=== PATIENT | male | born 1965 | race Caucasian/White ===

== ENCOUNTER 2017-01-20 12:14 | Observation (INO) ==
[2017-01-20] MEDS ORDERED: 0.9 % SODIUM CHLORIDE 1,000 ML IV ONE ×3 (12:44→15:32)
--- NOTE | 2017-01-20 13:03 | Emergency Department Note ---
General Adult HPI - General Chief complaint: Blood Sugar Problem Stated complaint: "I feel like im in DKA" Time Seen by Provider: 01/20/17 12:36 Source: patient Mode of arrival: ambulatory Limitations: no limitations - History of Present Illness HPI Narrative: 51-year-old male who states he goes in the frequent DKA is suspicious of DKA despite the fact that his blood sugars are running just in the 200s. He had one episode of vomiting this morning. States she has been feeling nauseated and increased weakness over the past 2 days some mild abdominal pain. States he has flulike symptoms. In previous visits and hospitalizations his blood sugars have been running in the 200s but is in DKA with bicarb levels of 14 on his previous visit. And having some slight dysuria he is afebrile this been no diarrhea constipation but no hematemesis no melena. Respiratory rate 26 patient tachycardic 120. - Related Data Home Medications Medication Instructions Recorded Confirmed Aspirin [Raymond Chewable Aspirin] 81 mg PO DAILY 11/15/14 09/27/16 Insulin 70/30, Human [Novolin 10 unit SQ TID 11/15/14 09/27/16 70/30] Rosuvastatin Calcium [Crestor] 40 mg PO HS 11/15/14 09/27/16 predniSONE [Prednisone] 0 mg PO BID 09/27/16 09/27/16 Allergies Allergy/AdvReac Type Severity Reaction Status Date / Time No Known Drug Allergies Allergy Verified 09/27/16 10:41 Review of Systems All systems ED: reviewed and negative except as stated. Constitutional: Denies: fever, chills Cardiovascular: Denies: chest pain Respiratory: Denies: cough Gastrointestinal: Reports: nausea, vomiting. Denies: abdominal pain, diarrhea, constipation, hematochezia, melena Genitourinary: Denies: dysuria Musculoskeletal: Denies: back pain Integumentary: Denies: rash Neurological: Denies: headache Past Medical History - Past Medical History Medical history: Reports: diabetes, hyperlipidemia, hypertension, other ( diabetes. ) Psychiatric history: Reports: anxiety, bipolar, depression, prior suicide attempt Surgical history ED: Reports: tonsillectomy - Social History smoking status: Current every day smoker Alcohol use: Reports: Occasionally (HAS BINGED IN THE PAST DENIES NOW.), Recent (DRANK 4 DRINKS 4 DAYS AGO.) Drug use: Reports: none Physical Exam Limitations: no limitations General appearance: alert Head: atraumatic, normocephalic Eye: Present: normal appearance, PERRL ENT: normal exam, normal oropharynx, mucous membranes moist Neck: Present: normal inspection, full ROM, trachea midline Chest: Present: normal inspection, symmetric chest wall rise. Absent: tenderness Respiratory: Present: normal lung sounds bilaterally, respiratory distress. Absent: wheezes, stridor Cardiovascular: Present: regular rate, tachycardia Abdominal: Present: soft, distention. Absent: tenderness, guarding Extremities: Present: normal inspection, full ROM Back: Present: normal inspection, full ROM. Absent: tenderness, CVA tenderness (R), CVA tenderness (L) Neurological: Present: alert, oriented X3, CN II-XII intact Psychiatric: Present: normal affect, normal mood. Absent: depressed, agitated Skin: Absent: warm Course Vital Signs Temperature 96.9 F L 01/20/17 12:16 Pulse Rate 130 H 01/20/17 12:16 Respiratory Rate 26 H 01/20/17 12:16 Blood Pressure 121/81 01/20/17 12:16 Pulse Oximetry (%) 98 01/20/17 12:16 Temperature 96.9 F L 01/20/17 12:16 Pulse Rate 104 H 01/20/17 13:54 Respiratory Rate 25 H 01/20/17 13:54 Blood Pressure 125/72 01/20/17 13:54 Pulse Oximetry (%) 99 01/20/17 13:54 Medical Decision Making - [facility] Narrative Medical decision making narrative: Blood gases were drawn pH of 7.33 and PCO2 was 18 his bicarb level was 9. White count was elevated at 16,000, ketones were 8.9, O2 content and can panel was 14 patient given IV fluids and on an insulin drip. Joe contacted patient be admitted by hospitalist. - Lab Data Result diagrams: 01/20/17 12:48 Lab Results 01/20/17 01/20/17 01/20/17 Range/Units 12:48 12:48 12:48 WBC 16.0 H (4.5-11.0) K/mcL RBC 4.19 L (4.50-5.90) M/mcL Hgb 14.7 (13.5-16.5) g/dL Hct 43.5 (41.0-55.0) % POC Hct (41.0-55.0) % MCV 103.8 H (80.0-100.0) fL MCH 35.0 H (26.0-34.0) pg MCHC 33.7 (31.0-36.0) g/dL RDW 13.0 (11.5-14.5) % Plt Count 230 (140-440) K/mcL MPV 8.6 (7.4-10.4) fL Gran % 77.5 (38.0-78.0) % Lymph % (Auto) 12.0 L (15.5-49.0) % [place] % (Auto) 9.8 (1.0-12.0) % Eos % (Auto) 0.4 (0.0-7.0) % Baso % (Auto) 0.3 (0.0-2.0) % Gran # 12.4 H (1.8-8.0) K/mcL Lymph # (Auto) 1.9 (1.5-4.8) K/mcL [place] # (Auto) 1.6 H (0.1-0.9) K/mcL Eos # (Auto) 0.1 (0.0-0.7) K/mcL Baso # (Auto) 0 (0.0-0.3) K/mcL POC Sodium (133-145) mmol/L POC Potassium (3.3-5.1) mmol/L POC Chloride (96-108) mmol/L POC Total CO2 (22-30) mmol/L POC BUN (6-20) mg/dl POC Creatinine (0.7-1.2) mg/dl POC Glucose (70-105) mg/dL POC WB Ioniz Calcium (1.16-1.32) mmol/L Beta-Hydroxybutyrate 8.93 H (< 0.27) mmol/L Ethyl Alcohol < 0.010 (<0.010) gm/dl 01/20/17 Range/Units 12:49 WBC (4.5-11.0) K/mcL RBC (4.50-5.90) M/mcL Hgb (13.5-16.5) g/dL Hct (41.0-55.0) % POC Hct 46.0 (41.0-55.0) % MCV (80.0-100.0) fL MCH (26.0-34.0) pg MCHC (31.0-36.0) g/dL RDW (11.5-14.5) % Plt Count (140-440) K/mcL MPV (7.4-10.4) fL Gran % (38.0-78.0) % Lymph % (Auto) (15.5-49.0) % [place] % (Auto) (1.0-12.0) % Eos % (Auto) (0.0-7.0) % Baso % (Auto) (0.0-2.0) % Gran # (1.8-8.0) K/mcL Lymph # (Auto) (1.5-4.8) K/mcL [place] # (Auto) (0.1-0.9) K/mcL Eos # (Auto) (0.0-0.7) K/mcL Baso # (Auto) (0.0-0.3) K/mcL POC Sodium 129 L (133-145) mmol/L POC Potassium 5.0 (3.3-5.1) mmol/L POC Chloride 100 (96-108) mmol/L POC Total CO2 14 L (22-30) mmol/L POC BUN 23 H (6-20) mg/dl POC Creatinine 0.6 L (0.7-1.2) mg/dl POC Glucose 228 H (70-105) mg/dL POC WB Ioniz Calcium 1.03 L (1.16-1.32) mmol/L Beta-Hydroxybutyrate (< 0.27) mmol/L Ethyl Alcohol (<0.010) gm/dl Disposition Pt seen by ACCESS LEAD/PA only: No Clinical Impression: DKA (diabetic ketoacidoses) Qualifiers: Diabetes mellitus type: type 1 Disposition: Xfer As Inpt ([facility]) Referrals: Dorina Mancera DO [Primary Care Provider] -
[2017-01-20] MEDS ORDERED: PHENobarb/HYOSCY/ATROPINE/SCOP 1 DOSE BOTTLE PO ONE (13:22)
[2017-01-20] MEDS ORDERED: INSULIN REGULAR, HUMAN 50 UNIT in 0.9 % SODIUM CHLORIDE 99.5 ML IV SCH (13:30)
[2017-01-20 13:33] LABS: Basophils # (Auto) 0 K/mcL (0.0-0.3); Basophils % (Auto) 0.3 % (0.0-2.0); Eosinophils # (Auto) 0.1 K/mcL (0.0-0.7); Eosinophils % (Auto) 0.4 % (0.0-7.0); Lymphocytes # (Auto) 1.9 K/mcL (1.5-4.8); Mean Cell Volume 103.8 fL (80.0-100.0); Mean Corpuscular HGB Conc 33.7 g/dL (31.0-36.0); Monocytes # (Auto) 1.6 K/mcL (0.1-0.9); Monocytes % (Auto) 9.8 % (1.0-12.0); Platelet Count 230 K/mcL (140-440); RBC 4.19 M/mcL (4.50-5.90)
--- NOTE | 2017-01-20 13:38 | XRay Report ---
INDICATION: Chest pain TECHNIQUE: AP chest x-ray,portable semiupright COMPARISON: None FINDINGS:Lungs are negative. No parenchymal infiltrate or mass. Heart size and vascularity are normal. No pulmonary edema. No pulmonary congestion. Radha and mediastinum are negative. No lateral fluid. IMPRESSION: 1. Negative AP chest x-ray 2. No interval change since 10/31/2015 Interpreted and Authenticated by: Paul Fernández 01/20/17
[2017-01-20] MEDS ORDERED: INSULIN REGULAR, HUMAN 50 UNIT in 0.9 % SODIUM CHLORIDE 99.5 ML IV ONE (13:43)
[2017-01-20] MEDS ORDERED: ONDANSETRON 4 MG/2 ML VIAL IV ONE (13:53)
[2017-01-20 14:12] LABS: Granulocytes % (Auto) 77.5 % (38.0-78.0)
[2017-01-20 14:41] LABS: Amphetamine Screen,Urine NONE DETECTED (NONDETECTED); Benzodiazepines Screen,Urine NONE DETECTED (NONDETECTED); Cocaine Screen,Urine NONE DETECTED (NONDETECTED); Opiate Screen,Urine NONE DETECTED (NONDETECTED)
[2017-01-20 14:45] LABS: Appearance,Urine CLEAR; Bacteria,Urine 0 /hpf (0); Bilirubin,Urine NEG (NEG); Color,Urine YELLOW; Glucose,Urine (UA) >=500 mg/dL (NEG); Leukocyte Esterase,Urine NEG /uL (NEG); Nitrate,Urine NEG (NEG); Protein,Urine 30 mg/dL (NEG); Specific Gravity,Urine 1.018 (1.000-1.035); Urine Blood 0.03 mg/dL (<0.03); Urine Hyaline Cast 16 /lpf (0-2); Urine RBC < 1 /hpf (0-1); Urine Squamous Epithelial Cell 0 /hpf (0-4); Urine WBC 5 /hpf (0-4); Urobilinogen,Urine NEG (NEG)
--- NOTE | 2017-01-20 15:18 | Internal Med History&Physical ---
Medical - H&P: HPI Patient information: Note initiated : 01/20/17 at 3:12 pm Service Date, if different from initiated Date: [] Patient: Luís Guadarrama a 51 y/o M admitted on for "I feel like im in DKA". Chief Complaint: Abdominal cramps, nausea, emesis, concern for DKA History of present illness: Mr. Guadarrama is a 51 year old M with a history of type 1 diabetes mellitus, hyperlipidemia, treated hypertension, bipolar disorder who presents with symptoms concerning for DKA. History is obtained in reviewing the chart, summarized as below, interviewing the patient. Patient started feeling ill about 2 days ago, he had flulike symptoms, which he often gets when he is developing DKA. He felt weak. Subsequently developed abdominal cramps with nausea, as well as gastric reflux symptoms. This morning he had emesis, which he realized was secondary to impending diabetic ketoacidosis and presented to the emergency department. In addition to his typical DKA symptoms, he also was feeling feverish with some chills at the onset of his illness. This does not usually accompany DKA. He had a mild headache and had been feeling lightheaded. He had no nasal congestion. No sore throat he had no myalgias. He has had increased thirst, as been drinking frequently, lots of water. He is also up several times in the night to urinate , while at baseline he is only up approximately twice per night. He's also had some dysuria when starting urinary stream for the last couple of days. Patient's glucoses are chronically in the 2-300 range. He does not think it's been that much different the last few days. His glucose was 178 this morning. He's had close to no oral intake for the last 3 days. Patient denies any chest tightness/squeezing/dyspnea. He's had no cough or sputum production. He has no history of coronary artery disease. No history of renal disease. Mild headache as noted, no focal neurologic symptoms. He had no hematemesis associated with his emesis. No blood in his stool. Dysuria as noted above. In the emergency department, he was found to have an anion gap acidosis with positive acetone consistent with diabetic ketoacidosis. He is being hospitalized for further treatment. Review of systems: Except as noted in history present illness, the remainder of an 11 point review of systems is negative. Medical - H&P: PMH Medical history: Type 1 diabetes mellitus, diagnosed in 2005 Hyperlipidemia Bipolar disorder with anxiety and depression Nicotine abuse Hypertension Pityriasis rosea, status post steroid treatment Surgical history: no prior surgeries Pertinent family history: Patient's grandmother had type 2 diabetes mellitus. Mother with breast cancer, father with coronary artery disease. Social history: The patient smokes one pack per day of cigarettes. He drinks occasional alcohol. Medical - H&P: Meds Home Medications Medication Instructions Recorded Confirmed Type Aspirin [Raymond Chewable Aspirin] 81 mg PO DAILY 11/15/14 01/20/17 History Insulin 70/30, Human [Novolin 10 unit SQ TID 11/15/14 01/20/17 History 70/30] Rosuvastatin Calcium [Crestor] 40 mg PO HS 11/15/14 01/20/17 History Lisinopril [Zestril] 10 mg PO DAILY 01/20/17 01/20/17 History Allergies Allergy/AdvReac Type Severity Reaction Status Date / Time No Known Drug Allergies Allergy Verified 09/27/16 10:41 Medical - H&P: Exam - Constitutional Vitals: Temp Pulse Resp BP Pulse Ox 96.9 F L 114 H 34 H 144/92 99 01/20/17 12:16 01/20/17 14:59 01/20/17 14:59 01/20/17 14:59 01/20/17 14:59 General appearance: average body habitus, cooperative, no acute distress - Head Head exam: Present: atraumatic, normal inspection, normocephalic - Eye Eye exam: Present: EOMI, normal appearance, PERRL. Absent: conjunctival injection, scleral icterus - ENT ENT exam: Present: mucous membranes moist, normal oropharynx - Neck Neck exam: Present: full ROM. Absent: lymphadenopathy, meningismus, thyromegaly - Respiratory Respiratory exam: Present: CTAB. Absent: accessory muscle use, rales, wheezes - Cardiovascular Cardiovascular exam: Present: tachycardia (regular). Absent: diastolic murmur, JVD, +S3, +S4, systolic murmur - Expanded Cardiovascular Exam Peripheral pulses: 2+: carotid (L), carotid (R), dorsalis pedis (L), dorsalis pedis (R) - GI/Abdominal GI/Abdominal exam: Present: normal bowel sounds, soft. Absent: distended, guarding, organomegaly, rebound, tenderness - Extremities Exam Extremities exam: Present: full ROM. Absent: calf tenderness, joint swelling, pedal edema - Back Exam Back exam: Present: normal inspection. Absent: tenderness - Neurological Exam Neurological exam: Present: alert, CN II-XII intact, oriented X3. Absent: motor sensory deficit - Psychiatric Psychiatric exam: Present: normal affect, normal mood - Skin Skin exam: Present: intact, normal color, warm. Absent: pallor Medical - H&P: Reslt - Labs CBC & Chem 7: 01/20/17 12:48 Labs: Short CBC 01/20/17 Range/Units 12:48 WBC 16.0 H (4.5-11.0) K/mcL Hgb 14.7 (13.5-16.5) g/dL Hct 43.5 (41.0-55.0) % Plt Count 230 (140-440) K/mcL Urine 01/20/17 Range/Units 13:56 Urine Color Yellow Urine Appearance Clear Urine pH 5.0 (5.0-9.0) Ur Specific [place] 1.018 (1.000-1.035) Urine Protein 30 A (NEG) mg/dL Urine Glucose (UA) >=500 A (NEG) mg/dL Laboratory Results - last 24 hr 01/20/17 01/20/17 01/20/17 12:48 12:48 12:48 WBC 16.0 H RBC 4.19 L Hgb 14.7 Hct 43.5 POC Hct MCV 103.8 H MCH 35.0 H MCHC 33.7 RDW 13.0 Plt Count 230 MPV 8.6 Gran % 77.5 Lymph % (Auto) 12.[address] [place] % (Auto) 9.8 Eos % (Auto) 0.4 Baso % (Auto) 0.3 Gran # 12.4 H Lymph # (Auto) 1.9 [place] # (Auto) 1.6 H Eos # (Auto) 0.1 Baso # (Auto) 0 POC Sodium POC Potassium POC Chloride POC Total CO2 POC BUN POC Creatinine POC Glucose POC WB Ioniz Calcium Beta-Hydroxybutyrate 8.93 H Urine Color Urine Appearance Urine pH Ur Specific [place] Urine Protein Urine Glucose (UA) Urine Ketones Urine Occult Blood Urine Nitrate Urine Bilirubin Urine Urobilinogen Ur Leukocyte Esterase Urine RBC Urine WBC Ur Squamous Epith Cells Urine Bacteria Hyaline Casts Ur Culture Indicated? Urine Opiates Screen Urine Methadone Screen Ur Barbiturates Screen Ur Phencyclidine Scrn Ur Amphetamines Screen U Benzodiazepines Scrn Urine Cocaine Screen U Marijuana (THC) Screen Ethyl Alcohol < 0.010 01/20/17 01/20/17 01/20/17 12:49 13:56 13:56 WBC RBC Hgb Hct POC Hct 46.0 MCV MCH MCHC RDW Plt Count MPV Gran % Lymph % (Auto) [place] % (Auto) Eos % (Auto) Baso % (Auto) Gran # Lymph # (Auto) [place] # (Auto) Eos # (Auto) Baso # (Auto) POC Sodium 129 L POC Potassium 5.0 POC Chloride 100 POC Total CO2 14 L POC BUN 23 H POC Creatinine 0.6 L POC Glucose 228 H POC WB Ioniz Calcium 1.03 L Beta-Hydroxybutyrate Urine Color Yellow Urine Appearance Clear Urine pH 5.0 Ur Specific [place] 1.018 Urine Protein 30 A Urine Glucose (UA) >=500 A Urine Ketones 80 A Urine Occult Blood 0.03 A Urine Nitrate Neg Urine Bilirubin Neg Urine Urobilinogen Neg Ur Leukocyte Esterase Neg Urine RBC < 1 Urine WBC 5 H Ur Squamous Epith Cells 0 Urine Bacteria 0 Hyaline Casts 16 H Ur Culture Indicated? Yes Urine Opiates Screen None detected Urine Methadone Screen None detected Ur Barbiturates Screen None detected Ur Phencyclidine Scrn None detected Ur Amphetamines Screen None detected U Benzodiazepines Scrn None detected Urine Cocaine Screen None detected U Marijuana (THC) Screen None detected Ethyl Alcohol - ABG Interpretation ABG results: 7.33/, lactate 1.0 - EKG Data -: EKG Reviewed by Myself EKG shows normal: sinus rhythm, ST-T waves Rate: tachycardia (116 bpm) - Impressions CXR reviewed, clear lung duran. Medical - H&P: A/P (1) Diabetic ketoacidosis Current visit: Yes Status: Acute (2) Type 1 diabetes mellitus Current visit: Yes Status: Chronic (3) Hypertension Current visit: Yes Status: Chronic (4) Hyperlipidemia Current visit: Yes Status: Chronic - Narrative A/P Narrative: 51-year-old male with late onset type 1 diabetes mellitus and history of diabetic ketoacidosis presents with weakness, abdominal symptoms, hyperglycemia , found to have recurrent DKA. DKA. Unclear etiology, he generally has not well controlled glucoses. States he has been taking his insulin. This did start with some subjective fevers and chills, though none now. May have been intercurrent viral illness, or glucoses became elevated enough without adequate insulin to slip into DKA. Do not suspect acute coronary syndrome. Chest x-ray is clear. He does have some dysuria but no evidence of urinary tract infection. His DKA is mild. Plan: Hospitalized in observation status IV insulin, IV fluids with dextrose as his serum glucose is not that elevated Serial electrolytes Monitor for closing of anion gap Type 1 diabetes mellitus. Diagnosed later in life, but clearly has had prior episodes of DKA and this is treated as type 1 diabetes. Plan: Hold subcutaneous insulin for now, resume regimen once anion gap closed. Controlled carb diet. Hypertension. On lisinopril at home. Plan: Continue lisinopril. Hyperlipidemia. On Crestor at home. Plan: Continue Crestor. Prophylaxis: Low molecular weight heparin. CODE STATUS: Full code
[2017-01-20] MEDS ORDERED: DEXTROSE 5%-1/2NS 1,000 ML IV ONE (15:31)
[2017-01-20] MEDS ORDERED: INSULIN REGULAR, HUMAN 50 UNIT in 0.9 % SODIUM CHLORIDE 100 ML IV SCH (15:51)
[2017-01-20] MEDS ORDERED: ONDANSETRON 4 MG/2 ML VIAL IV PRN (15:51)
[2017-01-20] MEDS ORDERED: ACETAMINOPHEN 325 MG TABLET PO PRN (15:51)
[2017-01-20] MEDS ORDERED: NICOTINE 21 MG PATCH TOPICAL ONE (17:31)
[2017-01-20] MEDS ORDERED: NICOTINE 21 MG PATCH ONE (17:48)
[2017-01-20] MEDS: DEXTROSE 5%-1/2NS 1,000 ML IV SCH ×2 (17:57→21:59)
[2017-01-20 18:58] LABS: Blood Urea Nitrogen 12 mg/dl (6-20)
[2017-01-20] MEDS ORDERED: INSULIN REGULAR, HUMAN 1 UNIT/0.01 ML UNIT IV PRN (19:07)
[2017-01-20] MEDS ORDERED: INSULIN REGULAR, HUMAN 1 UNIT/0.01 ML UNIT ONE (19:28)
[2017-01-20] MEDS ORDERED: DEXTROSE 50% 50 ML SYRINGE IV PRN (20:43)
[2017-01-20] MEDS ORDERED: ATORVASTATIN 20 MG TABLET PO SCH (21:00)
[2017-01-20 21:39] LABS: Magnesium 1.9 mg/dL (1.6-2.5)
[2017-01-20 21:42] LABS: Blood Urea Nitrogen 14 mg/dl (6-20)
[2017-01-21 05:23] LABS: ALT/SGPT 10 U/l (0-40); Albumin 2.9 gm/dL (3.2-5.2); Alkaline Phosphatase 86 U/L (39-117); Bilirubin,Direct < 0.2 mg/dL (0.0-0.3); Blood Urea Nitrogen 12 mg/dl (6-20); Gamma Glutamyl Transpeptidase 26 U/L (8-61); Magnesium 2.1 mg/dL (1.6-2.5); Uric Acid 3.1 mg/dL (2.5-8.0)
[2017-01-21] MEDS: DEXTROSE 5%-1/2NS 1,000 ML IV SCH (06:04)
[2017-01-21 06:07] LABS: Basophils # (Auto) 0 K/mcL (0.0-0.3); Basophils % (Auto) 0.2 % (0.0-2.0); Eosinophils # (Auto) 0.1 K/mcL (0.0-0.7); Eosinophils % (Auto) 0.9 % (0.0-7.0); Granulocytes % (Auto) 74.2 % (38.0-78.0); Lymphocytes % (Auto) 16.9 % (15.5-49.0); Mean Cell Volume 104.2 fL (80.0-100.0); Mean Corpuscular HGB Conc 34.5 g/dL (31.0-36.0); Mean Corpuscular Hemoglobin 35.9 pg (26.0-34.0); Monocytes # (Auto) 0.9 K/mcL (0.1-0.9); Monocytes % (Auto) 7.8 % (1.0-12.0); Platelet Count 219 K/mcL (140-440); RBC 3.53 M/mcL (4.50-5.90); Red Cell Distribution Width 12.9 % (11.5-14.5)
[2017-01-21] MEDS ORDERED: INSULIN REGULAR, HUMAN 1 UNIT/0.01 ML UNIT ONE (06:51)
[2017-01-21] MEDS ORDERED: DEXTROSE 31 GM ORAL.SUSP PO PRN (08:17)
[2017-01-21] MEDS ORDERED: DEXTROSE 50% 50 ML VIAL IV PRN (08:17)
[2017-01-21] MEDS ORDERED: LISINOPRIL 10 MG TABLET PO SCH (09:00)
[2017-01-21] MEDS ORDERED: ENOXAPARIN 40 MG/0.4 ML SYRINGE SQ SCH (09:00)
[2017-01-21] MEDS ORDERED: ASPIRIN 81 MG TAB.CHEW PO SCH (09:00)
[2017-01-21] MEDS ORDERED: POTASSIUM PHOSPHATE 40 MEQ in DEXTROSE 5% IN WATER 500 ML IV ONE (09:00)
[2017-01-21] MEDS: INSULIN, 75/25 NPL/LISPRO 1 UNIT/0.01 ML UNIT SQ SCH ×2 (09:11→12:36)
[2017-01-21] MEDS ORDERED: NICOTINE 21 MG PATCH TOPICAL SCH (10:00)
[2017-01-21] MEDS ORDERED: INSULIN LISPRO 1 UNIT/0.01 ML UNIT SQ SCH (11:30)
[2017-01-21] MEDS ORDERED: INSULIN, 75/25 NPL/LISPRO 1 UNIT/0.01 ML UNIT SQ SCH (11:45)
[2017-01-21] MEDS ORDERED: AMOXICILLIN 250 MG CAPSULE PO STA (14:21)
--- NOTE | 2017-01-21 18:41 | Discharge Summary ---
Medical - DS: Prov Patient information: Note initiated : 01/21/17 at 6:36 pm Service Date, if different from initiated Date: [] Patient: Luís Guadarrama 51 y/o M admitted on 01/20/17 for "I feel like im in DKA". Date of admission: 01/20/17 15:35 Discharge date: 01/21/17 Primary care physician: Dorina Mancera Admitting clinician: Regina Lew Consults: 01/20/17 14:59 Consult to Physician [CONS] Stat Comment: Consulting Provider: Regina Lew Reason For Exam: Physician to Consult Discharging clinician: Regina Lew Medical - DS: Meds - Discharge Medications Prescriptions: Amoxicillin 875 mg PO Q12H #10 tab Active and Home Medications: Home Medications Aspirin [Raymond Chewable Aspirin] 81 mg PO DAILY 11/15/14 [History Confirmed Last Taken 01/13/17 08:00] Insulin 70/30, Human [Novolin 70/30] 10 unit SQ TID 11/15/14 [History Confirmed 01/20/17 Last Taken 01/19/17 16:00] Rosuvastatin Calcium [Crestor] 40 mg PO HS 11/15/14 [History Confirmed 01/20/17 Last Taken 01/19/17 17:00] Lisinopril [Zestril] 10 mg PO DAILY 01/20/17 [History Confirmed 01/20/17 Last Taken 01/20/17 08:00] Amoxicillin 875 mg PO Q12H #10 tab 01/21/17 [Rx Last Taken Unknown] Medical - DS: Hosp Hospital course: Mr. Guadarrama is a 51-year-old male with history of type 1 diabetes mellitus and history of DKA. He presented with a few days of malaise, mildly elevated glucoses, polyuria and polydipsia. On the day of hospitalization he also had nausea and vomiting. He is found to be in mild DKA with elevated anion gap, positive serum ketones. He is treated with IV insulin, fluids with dextrose. Over the next several hours and overnight his anion gap closed. He is weaned off of his insulin drip back onto his usual 70/30 insulin regimen. He tolerated that well. Patient is also complaining of some dysuria at admission. Initial urinalysis was not concerning, however culture returned [id number] CFU per mL of enterococcus. Given his diabetes, glucosuria and symptoms, I have elected to treat him for urinary tract infection. He was given 1 dose of amoxicillin prior to discharge and will follow-up with 5 day course as an outpatient. Discharge diagnosis: DKA, resolved - Time Spent with Patient Total time spent providing and/or coordinating discharge services: Medical - DS: Exam - Constitutional Vitals: Vital Signs Temp Pulse Resp BP BP Pulse Ox 01/21/17 14:56 18 01/21/17 12:05 98.6 F 18 124/84 01/21/17 09:37 124/84 01/21/17 08:14 98.5 F 12 95/65 97 01/21/17 07:23 18 01/21/17 04:02 98.5 F 16 106/66 95 01/21/17 00:05 98.2 F 16 108/69 97 01/20/17 19:47 99.0 F H 94 H 20 102/65 99 Intake and Output 01/21/17 01/21/17 01/21/17 05:59 13:59 21:59 Intake Total 1300 / 1300 1304.5909 / 1304.5909 Output Total 1450 / 1450 2350 / 2350 Balance -150 / -150 -1045.4091 / -1045.4091 Intake: IV 1000 / 5040 975.8868 / 584.5909 Dextrose 5%-1/2Ns IV Solution 1 1000 / 1000 ,000 ml @ 125 mls/hr IV .Q8H MAGDALENO Rx#:[id number] HumuLIN R 50 UNIT In Sodium 75.5 / 75.5 Chloride 0.9% 100 ml @ 0.1 UNIT /KG/HR 14.58 mls/hr IV DUR MAGDALENO Rx#:[id number] Potassium Phosphate 40 Meq In 509.0909 / 509.0909 Dextrose 5% in Water 500 ml @ 127.273 mls/hr IV ONCE ONE Rx#: [id number] Oral 300 / 300 720 / 720 Output: Urine Catheter Amount 850 / 850 Void Amount 1450 / 1450 1500 / 1500 Other: Meal Lunch Percent of Meal Consumed 100% Additional comments: Gen: in NAD Chest: Clear, unlabored CV: RRR, no edema Abd: Soft, NT Neuro: Alert, Ox3, normal mood and affect Medical - DS: Data Labs on day of discharge: Labs from last 24 hours 01/21/17 01/21/17 01/20/17 03:40 03:30 21:00 WBC 11.8 H RBC 3.53 L Hgb 12.7 L Hct 36.7 L MCV 104.2 H MCH 35.9 H MCHC 34.5 RDW 12.9 Plt Count 219 MPV 8.3 Gran % 74.2 Lymph % (Auto) 16.9 [place] % (Auto) 7.8 Eos % (Auto) 0.9 Baso % (Auto) 0.2 Gran # 8.8 H Lymph # (Auto) 2.0 [place] # (Auto) 0.9 Eos # (Auto) 0.1 Baso # (Auto) 0 Sodium 135 133 Potassium 4.1 3.8 Chloride 102 99 Carbon Dioxide 18 L 22 Anion Gap 15.0 12.0 BUN 12 14 Creatinine 0.6 L 0.8 GFR Calculation 116 103 Glucose 179 H 177 H Uric Acid 3.1 Calcium 8.3 L 8.0 L Phosphorus 1.7 L Magnesium 2.1 Total Bilirubin 0.3 Direct Bilirubin < 0.2 GGT 26 AST 13 ALT 10 Alkaline Phosphatase 86 Lactate Dehydrogenase 176 Total Protein 5.9 Albumin 2.9 L Globulin 3.0 Albumin/Globulin Ratio 1.0 Triglycerides 54 01/20/17 01/20/17 17:15 17:15 WBC RBC Hgb Hct MCV MCH MCHC RDW Plt Count MPV Gran % Lymph % (Auto) [place] % (Auto) Eos % (Auto) Baso % (Auto) Gran # Lymph # (Auto) [place] # (Auto) Eos # (Auto) Baso # (Auto) Sodium 132 L Potassium 4.3 Chloride 97 Carbon Dioxide 16 L Anion Gap 19.0 H BUN 12 Creatinine 0.8 GFR Calculation 103 Glucose 198 H Uric Acid Calcium 8.0 L Phosphorus 1.5 L Magnesium 1.9 Total Bilirubin Direct Bilirubin GGT AST ALT Alkaline Phosphatase Lactate Dehydrogenase Total Protein Albumin Globulin Albumin/Globulin Ratio Triglycerides Preliminary micro results at discharge 01/20/17 13:56 Urine Culture - Preliminary Urine - Clean Void Mid-Stream Enterococcus species Medical - DS: A/P - Patient/Caregiver Discharge Instructions Activity: increase activity as tolerated Diet: Consistent Carbohydrate Prescriptions: Amoxicillin 875 mg PO Q12H #10 tab - Problem Maintenance (1) Diabetic ketoacidosis Status: Resolved Qualifiers: Diabetes mellitus type: type 1 Diabetes mellitus complication detail: without coma Qualified Code(s): E10.10 - Type 1 diabetes mellitus with ketoacidosis without coma (2) Type 1 diabetes mellitus Status: Chronic Qualifiers: Diabetes mellitus complication status: with ketoacidosis Diabetes mellitus complication detail: without coma Qualified Code(s): E10.10 - Type 1 diabetes mellitus with ketoacidosis without coma (3) Hypertension Status: Chronic Qualifiers: Hypertension type: essential hypertension Qualified Code(s): I10 - Essential (primary) hypertension (4) Hyperlipidemia Status: Chronic Qualifiers: Hyperlipidemia type: unspecified Qualified Code(s): E78.5 - Hyperlipidemia , unspecified (5) UTI (urinary tract infection) due to Enterococcus Status: Acute - Follow up Plan Follow up with: Dorina Mancera DO [Primary Care Provider] - Disposition: Home, Self-Care Prognosis: Good Rehab Potential: Good Overall status at discharge: patient is back to baseline Medical - DS: Qual - VTE Deep Vein Thrombosis/Pulmonary Embolism Present on Admission: No
== END 2017-01-21 14:40 | disposition home or self-care (01) ==
LOC: ICU 12:14 → ED 12:14 → ICU 15:54
PROVIDERS: ADMIT Internal Medicine; ATTEND Internal Medicine

== ENCOUNTER 2020-08-31 08:13 | Inpatient (IN) ==
[2020-08-31] MEDS ORDERED: 0.9 % SODIUM CHLORIDE 1,000 ML IV ONE ×4 (08:37→11:15)
[2020-08-31] MEDS ORDERED: KETOROLAC 30 MG/ML VIAL IV ONE (08:44)
[2020-08-31] MEDS ORDERED: PROCHLORPERAZINE 10 MG/2 ML VIAL IV ONE (08:44)
[2020-08-31] MEDS ORDERED: 0.9 % SODIUM CHLORIDE 2,000 ML IV ONE (08:44)
[2020-08-31] MEDS ORDERED: diphenhydrAMINE 50 MG/ML VIAL IV ONE (08:44)
--- NOTE | 2020-08-31 08:55 | Emergency Department Note ---
Weakness HPI General Chief complaint: Weakness Stated complaint: "im in DKA" Time Seen by Provider: 08/31/20 08:36 Source: patient, RN notes reviewed and old records reviewed Mode of arrival: ambulatory Limitations: no limitations History of Present Illness HPI Narrative: Narrative: 55-year-old male was working outside in the extreme heat day prior to arrival and night prior to arrival started having nausea vomiting inability to hold down fluids feeling weak and dehydrated. Patient has diabetes and he says his sugars have been running in the 200s which is normal for him but he is tachycardic and he feels his breath smells acetone and he is concerned he may have DKA. MD Complaint: generalized weakness Onset (ago): day(s) (1) Duration: constant Location: generalized Migration: none Severity: moderate Improves with: rest Worsens with: exertion Context: other (Was working outside in the extreme heat day prior to arrival) Associated symptoms: Reports loss of appetite, nausea/vomiting and other (Tachycardia); Denies chest pain, confusion, dark stools, diaphoresis, dysuria, easy bruising, fever/chills, headaches, myalgias, rash, shortness of breath and syncope Related Data Home Medications Medication Instructions Recorded Confirmed rosuvastatin [Crestor] 40 mg PO HS 11/15/14 08/31/20 folic acid 800 mcg PO QAM 08/31/20 08/31/20 insulin NPH-regular hum s-syn 10 ml SUBCUT 1200,1800 08/31/20 08/31/20 [Novolin 70/30 U-100 Insulin] insulin NPH-regular hum s-syn 15 - 20 ml SUBCUT QAM 08/31/20 08/31/20 [Novolin 70/30 U-100 Insulin] lisinopril 40 mg PO QDAY 08/31/20 08/31/20 methotrexate 10 mg PO TU 08/31/20 08/31/20 Allergies Allergy/AdvReac Type Severity Reaction Status Date / Time No Known Drug Allergies Allergy Verified 08/31/20 08:17 Review of Systems ROS ROS Narrative: Narrative: Constitutional: Reports weakness; Denies fever and chills Eyes: Denies vision change ENT ED: Denies throat pain Cardiovascular: Reports palpitations; Denies chest pain Respiratory: Denies shortness of breath Gastrointestinal: Reports nausea and vomiting; Denies abdominal pain Musculoskeletal: Denies back pain Integumentary: Denies rash Neurological: Denies headache Psychiatric: Denies depression Endocrine: Reports fatigue and heat or cold intolerance Hematological/Lymphatic: Denies easy bruising Allergic/Immunologic: Denies urticaria PFSH Narrative Patient History Narrative: Narrative: Medical/Surgical/Family History All Active Problems (Updated 08/31/20 @ 10:44 by Fabian Kelly MD) Type 1 diabetes mellitus (Chronic) Hypertension (Chronic) Hyperlipidemia (Chronic) UTI (urinary tract infection) due to Enterococcus (Acute) DKA (diabetic ketoacidoses) (Acute) Acute hyperkalemia (Acute) Medical History Diabetic ketoacidosis Social History Smoking Status: Current every day smoker Exam Narrative Narrative: Narrative: General Limitations: no limitations General appearance: Present alert and in no apparent distress Head Head: Present atraumatic, normocephalic and normal inspection Eye Eye: Present normal appearance, PERRL and EOMI; Absent scleral icterus and conjunctival injection ENT ENT: Present normal oropharynx and mucous membranes dry Neck Neck: Present normal inspection, full ROM and trachea midline; Absent tenderness, meningismus, lymphadenopathy and thyromegaly Chest Chest: Present normal inspection and symmetric chest wall rise; Absent tenderness Respiratory Respiratory: Present normal lung sounds bilaterally; Absent respiratory distres s, wheezes, stridor, accessory muscle use and prolonged expiratory phase Cardiovascular Cardiovascular: Present normal rhythm and tachycardia; Absent systolic murmur and diastolic murmur Adbominal Abdominal: Present soft and normal bowel sounds; Absent distention, tenderness, guarding, rebound, rigidity, organomegaly and mass Extremities Extremities: Present normal inspection and full ROM; Absent tenderness, normal capillary refill, pedal edema, pretibial edema and calf tenderness Back Back: Absent CVA tenderness (R), CVA tenderness (L) and spinous process tenderness Neurological Neurological: Present alert and oriented X3 Psychiatric Psychiatric: Present normal affect and normal mood Skin Skin: Present warm (WNL) and dry Course Vital Signs Vital signs: Vital Signs Temperature 97.3 F 08/31/20 08:13 Pulse Rate 125 H 08/31/20 08:13 Respiratory Rate 16 08/31/20 08:13 Blood Pressure 99/82 08/31/20 08:13 Pulse Oximetry (%) 98 08/31/20 08:13 Temperature 97.3 F 08/31/20 08:13 Pulse Rate 114 H 08/31/20 10:02 Respiratory Rate 16 08/31/20 08:13 Blood Pressure 151/75 08/31/20 10:02 Pulse Oximetry (%) 100 08/31/20 10:02 [facility] MDM Narrative Medical decision making narrative: Narrative: 55-year-old male who became dehydrated from working outside day prior to arrival developed nausea vomiting and diabetic ketoacidosis. Patient sugar is 308 but he has a potassium of 5.4 and a BUN to creatinine ratio of greater than 20/1. Anion gap is markedly elevated at 34. Patient received 5 units of IV insulin and placed on a 2 unit/h IV insulin. Patient will be admitted to the ICU for DKA hyperkalemia and dehydration. Differential Diagnosis Differential Diagnosis: Dehydration, hyperglycemia, hypoglycemia, DKA, hyperosmolar. Medical Records Medical records reviewed: Yes I reviewed the patient's medical records. Lab Data Lab results reviewed: Yes I reviewed the patient's lab results. Result diagrams: 08/31/20 08:53 08/31/20 08:52 Labs: Lab Results 08/31/20 08/31/20 Range/Units 08:52 08:53 WBC 9.6 (4.5-11.0) K/mcL RBC 4.04 L (4.50-5.90) M/mcL Hgb 14.7 (13.5-16.5) g/dL Hct 42.6 (41.0-55.0) % MCV 105.4 H (80.0-100.0) fL MCH 36.4 H (26.0-34.0) pg MCHC 34.5 (31.0-36.0) g/dL RDW 12.2 (11.5-14.5) % Plt Count 266 (140-440) K/mcL MPV 10.1 (7.4-10.4) fL Neut % (Auto) 83.7 H (38.0-78.0) % Lymph % (Auto) 11.7 L (15.0-49.0) % Sebastian % (Auto) 4.3 (1.0-12.0) % Eos % (Auto) 0.1 (0.0-7.0) % Baso % (Auto) 0.2 (0.0-2.0) % Lymph # (Auto) 1.12 L (1.50-4.80) K/mcL Sebastian # (Auto) 0.41 (0.10-0.90) K/mcL Eos # (Auto) 0.01 (0.00-0.70) K/mcL Baso # (Auto) 0.02 (0.00-0.20) K/mcL Absolute Neutrophils 8.03 H (1.80-8.00) K/mcL Sodium 133 (133-145) mmol/L Potassium 5.4 H (3.3-5.1) mmol/L Chloride 90 L (96-108) mmol/L Carbon Dioxide 9 L* (22-30) mmol/L Anion Gap 34.0 H (8.0-16.0) BUN 27 H (6-20) mg/dL Creatinine 1.1 (0.7-1.2) mg/dL GFR Calculation 74 Glucose 308 H (70-105) mg/dL Calcium 10.2 (8.6-10.4) mg/dL Total Bilirubin 0.6 (0.1-1.0) mg/dL AST 21 (<40) U/L ALT 19 (<40) U/L Alkaline Phosphatase 113 (39-117) U/L Total Protein 7.4 (5.9-8.4) gm/dL Albumin 4.5 (3.2-5.2) gm/dL Globulin 2.9 (2.2-3.7) gm/dL Albumin/Globulin Ratio 1.6 (1.0-2.3) ED POC Tests ED POC Tests: UA dip positive for ketones EKG Data EKG #1: EKG attestation: Yes I reviewed and interpreted this EKG. EKG shows normal: sinus rhythm Rate: tachycardia (103) Rhythm: NSR [place]/QRS: LAHB/LAFB P waves: LAE Heart block present: None ST segment elevation in: None ST segment depression in: None Q waves: v1 and v2 Hyperacute T waves: v3, v4, v5 and v6 QTc: normal QRS morphology: Present normal Interpretation: nonspecific ST-T wave changes Pulse Oximetry Data Pulse Ox %: 100 Interpretation: WNL CC TIME Critical Care Time Critical Care Time: Yes Total Critical Care Time: 45 Attestation: Approximately 45 minutes of critical care time was used in order to assess and manage the high probability of imminent or life threatening deterioration to [system DKA hyperkalemia risk for kidney failure and cardiac arrest secondary to hyperkalemia] which required my highest level of preparedness and interventions with frequent patient assessments. This time is excluding time spent on separately billable procedures. Discharge Plan Patient/Caregiver Discharge Instructions Pt seen by KEG WASHER/PA only: No Clinical Impression: Acute hyperkalemia DKA (diabetic ketoacidoses) Qualifiers: Diabetes mellitus type: type 1 Diabetes mellitus complication detail: without coma Qualified Code(s): E10.10 - Type 1 diabetes mellitus with ketoacidosis without coma Patient Disposition: Xfer As Inpt ([facility]) Follow up with: Naldo Valdez ARNP [Primary Care Provider] - Prescriptions: No Action rosuvastatin [Crestor] 40 MG tablet 40 mg PO HS RF: 0 lisinopril 40 mg Tablet 40 mg PO QDAY RF: 0 folic acid 800 mcg Tablet 800 mcg PO QAM RF: 0 Novolin 70/30 U-100 Insulin 100 unit/mL (70-30) Solution 15 - 20 ml SUBCUT QAM RF: 0 Novolin 70/30 U-100 Insulin 100 unit/mL (70-30) Solution 10 ml SUBCUT 1200,1800 RF: 0 methotrexate 2.5 mg/mL Solution 10 mg PO TU RF: 0
[2020-08-31 09:32] LABS: Basophils # (Auto) 0.02 K/mcL (0.00-0.20); Basophils % (Auto) 0.2 % (0.0-2.0); Eosinophils # (Auto) 0.01 K/mcL (0.00-0.70); Eosinophils % (Auto) 0.1 % (0.0-7.0); Hematocrit 42.6 % (41.0-55.0); Hemoglobin 14.7 g/dL (13.5-16.5); Lymphocytes # (Auto) 1.12 K/mcL (1.50-4.80); Lymphocytes % (Auto) 11.7 % (15.0-49.0); Mean Cell Volume 105.4 fL (80.0-100.0); Mean Corpuscular HGB Conc 34.5 g/dL (31.0-36.0); Mean Platelet Volume 10.1 fL (7.4-10.4); Monocytes # (Auto) 0.41 K/mcL (0.10-0.90); Monocytes % (Auto) 4.3 % (1.0-12.0); Neutrophils % (Auto) 83.7 % (38.0-78.0); Platelet Count 266 K/mcL (140-440); RBC 4.04 M/mcL (4.50-5.90); Red Cell Distribution Width 12.2 % (11.5-14.5); WBC 9.6 K/mcL (4.5-11.0)
[2020-08-31 10:22] LABS: ALT/SGPT 19 U/L (<40); AST/SGOT 21 U/L (<40); Albumin 4.5 gm/dL (3.2-5.2); Albumin/Globulin Ratio 1.6 (1.0-2.3); Alkaline Phosphatase 113 U/L (39-117); Bilirubin,Total 0.6 mg/dL (0.1-1.0); Blood Urea Nitrogen 27 mg/dL (6-20); Calcium 10.2 mg/dL (8.6-10.4); Carbon Dioxide 9 mmol/L (22-30); Chloride 90 mmol/L (96-108); Globulin 2.9 gm/dL (2.2-3.7); Glomerular Filtration Rate 74; Glucose 308 mg/dL (70-105)
[2020-08-31] MEDS ORDERED: INSULIN REGULAR, HUMAN 1 UNIT/0.01 ML UNIT IV ONE (10:35)
[2020-08-31] MEDS ORDERED: INSULIN REGULAR, HUMAN 50 UNIT in 0.9 % SODIUM CHLORIDE 99.5 ML IV ONE (10:39)
--- NOTE | 2020-08-31 11:07 | Internal Med History&Physical ---
HPI History of Present Illness Patient information: Note initiated : 08/31/20 at 11:04 am Service Date, if different from initiated Date: [] Patient: Luís Guadarrama 55 y/o M admitted on for "I'm In DKA". Chief Complaint: Nausea vomiting and not feeling well History of present illness: Patient is a pleasant 55 years old male with type 1 diabetes mellitus came to emergency room with not feeling well. Patient was working outside most of the day. He started having nausea and vomiting. He woke up this morning feeling nauseous. He has no abdominal pain fever chills dysuria diarrhea. He knew he has DKA and came to emergency room. In the emergency room he found to be in diabetic ketoacidosis with CO2 of 9 anion gap of 34. Patient was given IV insulin and started on DKA protocol. Review of Systems All systems: reviewed and no additional remarkable complaints except as stated Review of systems: Positive nausea, vomiting. No fever chills diarrhea or dysuria. No cough chest pain shortness of breath. PFSH PFSH All Active Problems Type 1 diabetes mellitus (Chronic) Hypertension (Chronic) Hyperlipidemia (Chronic) UTI (urinary tract infection) due to Enterococcus (Acute) DKA (diabetic ketoacidoses) (Acute) Acute hyperkalemia (Acute) Medical History Diabetic ketoacidosis MEDS/ALLERGIES Home Medications and Allergies Home Medications Medication Instructions Recorded Confirmed Type rosuvastatin [Crestor] 40 mg PO HS 11/15/14 08/31/20 History folic acid 800 mcg PO QAM 08/31/20 08/31/20 History insulin NPH-regular hum s-syn See Rx Instructions .ROUTE .COMPLEX 08/31/20 08/31/20 History [Novolin 70/30 U-100 Insulin] lisinopril 40 mg PO QDAY 08/31/20 08/31/20 History methotrexate 10 mg PO TU 08/31/20 08/31/20 History Allergies Allergy/AdvReac Type Severity Reaction Status Date / Time No Known Drug Allergies Allergy Verified 08/31/20 14:01 EXAM Constitutional Vitals: Temp Pulse Resp BP Pulse Ox 97.3 F 111 H 16 118/58 100 08/31/20 08:13 08/31/20 10:48 08/31/20 08:13 08/31/20 10:46 08/31/20 10:48 General appearance: cooperative and no acute distress Head Head exam: Present atraumatic, normal inspection and normocephalic Eye Eye exam: Present EOMI, normal appearance and PERRL Neck Neck exam: Present full ROM and normal inspection Respiratory Respiratory exam: Present normal respiratory exam and CTAB Cardiovascular Cardiovascular exam: Present normal rate and rhythm, +S1 and +S2; Absent diastolic murmur and systolic murmur GI/Abdominal GI/Abdominal exam: Present normal bowel sounds and soft; Absent hernia, mass, rebound and tenderness Extremities Exam Extremities exam: Present full ROM, normal capillary refill and normal inspection; Absent calf tenderness and joint swelling Back Exam Back exam: Present full ROM Neurological Exam Neurological exam: Present alert, CN II-XII intact, oriented X3 and reflexes normal Psychiatric Psychiatric exam: Present normal affect and normal mood Skin Skin exam: Present dry, normal color and warm DATA Data Completed and Pending Labs: Labs from last 24 hours 08/31/20 08/31/20 08/31/20 08:53 08:52 08:52 WBC 9.6 RBC 4.04 L Hgb 14.7 Hct 42.6 MCV 105.4 H MCH 36.4 H MCHC 34.5 RDW 12.2 Plt Count 266 MPV 10.1 Neut % (Auto) 83.7 H Lymph % (Auto) 11.7 L [place] % (Auto) 4.3 Eos % (Auto) 0.1 Baso % (Auto) 0.2 Lymph # (Auto) 1.12 L Benzie # (Auto) 0.41 Eos # (Auto) 0.01 Baso # (Auto) 0.02 Absolute Neutrophils 8.03 H Sodium 133 Potassium 5.4 H Chloride 90 L Carbon Dioxide 9 L* Anion Gap 34.0 H BUN 27 H Creatinine 1.1 GFR Calculation 74 Glucose 308 H Calcium 10.2 Total Bilirubin 0.6 AST 21 ALT 19 Alkaline Phosphatase 113 Total Protein 7.4 Albumin 4.5 Globulin 2.9 Albumin/Globulin Ratio 1.6 Beta-Hydroxybutyrate Pending A/P Narrative A/P Narrative: 55 years old male with type 1 diabetes mellitus admitted with following problem list: # DKA/HHNKs. - BS 308, CO2 9, anion gap 34, positive ketone -Likely due to dehydration since patient was working outside all day yesterday during the day with temperature over 108 -Admit ICU. Started DKA protocol with IV insulin, aggressive IV fluid and insulin drip -BMP every 6 hours and adjust per protocol # DM I. Good control per pt. Last A1c 9.6 - On NPH at home tid. #Rheumatoid arthritis with no flareup. -Continue methotrexate and folic acid #Essential hypertension. -Resume home lisinopril tomorrow morning since blood pressure is around 110 #Hyperlipidemia: Resume home statin DVT/GI PPx, Lovenox 40 mg daily, Pepcid 20mb bid Code. Full Disposition. ICU. Total critical care time spent 70 minutes Plan of care discussed with patient and ICU staff Time Spent With Patient Time: Total time spent is greater than 50% in coordination of care (as documented) at patient's floor/unit and/or counseling patient:
[2020-08-31 11:38] LABS: POC Blood Urea Nitrogen 27 mg/dL (6-20); POC CO2 9 mmol/L (22-30); POC Calcium, Ionized 1.22 mmEq/L (1.16-1.32); POC Chloride 108 mEq/L (96-108); POC Glucose, Random 274 mg/dL (70-105); POC Hematocrit 42 % (41-55); POC Potassium 5.2 mEql/L (3.3-5.1); POC Sodium 138 mEq/L (133-145)
--- NOTE | 2020-08-31 12:18 | EKG ---
[facility] Test Date: 2020-08-31 Pat Name: Luís Guadarrama Department: ED Room: Gender: Male Development Architect: : 1965 Requested By: Fabian Kelly Order Number: [id number] Reading MD: Felipe Prescott M.D. Measurements Intervals Angie Rate: 103 P: 80 MS: 147 QRS: -74 QRSD: 83 T: 69 QT: 332 QTc: 435 Interpretive Statements Sinus tachycardia Probable left atrial enlargement Left anterior fascicular block Probable anteroseptal infarct, old NO PRIOR TRACING FOR COMPARISON ABNORMAL ECG Electronically Signed On 08-31-2020 12:18:10 PDT by Felipe Prescott M.D. /[facility]/[email or web address]/[id number].pdf
[2020-08-31] MEDS ORDERED: NICOTINE 21 MG PATCH TOPICAL ONE ×2 (12:22→13:25)
[2020-08-31] MEDS ORDERED: METHOTREXATE 2.5 MG/ML PO SCH (12:45)
[2020-08-31] MEDS ORDERED: PROMETHAZINE 25 MG/ML VIAL IV PRN (13:25)
[2020-08-31] MEDS ORDERED: ONDANSETRON 4 MG/2 ML VIAL IV PRN (13:25)
[2020-08-31] MEDS ORDERED: ACETAMINOPHEN 325 MG TABLET PO PRN (13:25)
[2020-08-31] MEDS ORDERED: METHOTREXATE SODIUM 2.5 MG TABLET PO SCH (13:45)
[2020-08-31] MEDS ORDERED: CALCIUM CARBONATE 500 MG TAB.CHEW CHEWED PRN (13:50)
[2020-08-31] MEDS: ENOXAPARIN 40 MG/0.4 ML SYRINGE SQ SCH (13:51)
[2020-08-31] MEDS: DEXTROSE 5%-1/2NS 1,000 ML IV SCH ×2 (13:52→20:55)
[2020-08-31] MEDS: FAMOTIDINE/PF 20 MG/2 ML VIAL IV ONE ×2 (14:07→15:05)
[2020-08-31] MEDS ORDERED: FAMOTIDINE/PF 20 MG/2 ML VIAL IV ONE (14:08)
[2020-08-31] MEDS: 0.9 % SODIUM CHLORIDE 10 ML SYRINGE IV SCH ×2 (14:11→20:16)
[2020-08-31 18:02] LABS: Estimated Average Glucose(eAG) 194 mg/dL; Hemoglobin A1C 8.4 % Hgb (4.0-6.0)
[2020-08-31] MEDS: FAMOTIDINE/PF 20 MG/2 ML VIAL IV SCH (20:16)
[2020-08-31] MEDS ORDERED: ROSUVASTATIN 40 MG PO SCH (21:00)
[2020-08-31] MEDS ORDERED: SIMVASTATIN 40 MG TABLET PO SCH (21:00)
[2020-08-31 21:14] LABS: Blood Urea Nitrogen 22 mg/dL (6-20); Carbon Dioxide 18 mmol/L (22-30); Chloride 103 mmol/L (96-108); Glomerular Filtration Rate 95; Glucose 147 mg/dL (70-105)
[2020-08-31] MEDS ORDERED: DEXTROSE 31 GM ORAL.SUSP PO PRN (23:13)
[2020-08-31] MEDS ORDERED: DEXTROSE 50% 50 ML VIAL IV PRN (23:13)
[2020-08-31] MEDS ORDERED: INSULIN NPH, HUMAN 1 UNIT/0.01 ML UNIT SQ SCH (23:15)
[2020-08-31] MEDS ORDERED: INSULIN NPH, HUMAN 1 UNIT/0.01 ML UNIT SQ ONE (23:35)
[2020-09-01 01:14] LABS: Blood Urea Nitrogen 18 mg/dL (6-20); Calcium 8.2 mg/dL (8.6-10.4); Carbon Dioxide 19 mmol/L (22-30); Chloride 105 mmol/L (96-108); Glomerular Filtration Rate 105; Glucose 153 mg/dL (70-105)
[2020-09-01] MEDS: 0.9 % SODIUM CHLORIDE 10 ML SYRINGE IV SCH (05:31)
[2020-09-01 06:35] LABS: Hematocrit 33.9 % (41.0-55.0); Mean Cell Volume 101.8 fL (80.0-100.0); Mean Corpuscular HGB Conc 35.4 g/dL (31.0-36.0); Platelet Count 201 K/mcL (140-440); RBC 3.33 M/mcL (4.50-5.90); Red Cell Distribution Width 12.1 % (11.5-14.5); WBC 8.1 K/mcL (4.5-11.0)
[2020-09-01 07:04] LABS: Blood Urea Nitrogen 16 mg/dL (6-20); Calcium 8.2 mg/dL (8.6-10.4); Carbon Dioxide 19 mmol/L (22-30); Chloride 102 mmol/L (96-108); Glomerular Filtration Rate 105; Glucose 158 mg/dL (70-105)
[2020-09-01] MEDS: INSULIN LISPRO 1 UNIT/0.01 ML UNIT SQ SCH ×2 (07:05→12:19)
[2020-09-01 07:44] LABS: Band Neutrophils % 1 % (0-10); Lymphocytes % 37 % (15-49); Monocytes % (Manual) 5 % (1-12); Platelet Estimate NORMAL (Normal); RBC Morphology NORMAL (Normal); Reactive Lymphocytes 1 % (0-2); Segmented Neutrophils % 56 % (38-78)
[2020-09-01] MEDS: FAMOTIDINE/PF 20 MG/2 ML VIAL IV SCH (08:07)
[2020-09-01] MEDS: ENOXAPARIN 40 MG/0.4 ML SYRINGE SQ SCH (08:07)
[2020-09-01] MEDS ORDERED: FOLIC ACID 1 MG TABLET PO SCH (09:00)
[2020-09-01] MEDS ORDERED: LISINOPRIL 20 MG TABLET PO SCH (09:00)
[2020-09-01] MEDS ORDERED: FOLIC ACID 800 MCG PO SCH (09:00)
[2020-09-01] MEDS ORDERED: LISINOPRIL 40 MG PO SCH (09:00)
[2020-09-01] MEDS: INSULIN NPH, HUMAN 1 UNIT/0.01 ML UNIT SQ SCH ×2 (09:31→12:20)
--- NOTE | 2020-09-01 12:50 | Discharge Summary ---
Discharge Provider Provider Patient information: Note initiated : 09/01/20 at 12:46 pm Service Date, if different from initiated Date: [] Patient: Luís Guadarrama 55 y/o M admitted on 08/31/20 for "I'm In DKA". Chief Complaint: Nausea and vomiting. Date of admission: 08/31/20 13:21 Discharge date: 09/01/20 Primary care physician: FAMILIA Keita Consults: 08/31/20 Consult to Physician [CONS] Stat Comment: Consulting Provider: Mars Foster Reason For Exam: Physician to Consult Discharge Meds Discharge Medications Home Medications rosuvastatin [Crestor] 40 mg PO HS 11/15/14 [History Confirmed 08/31/20 Last Taken 08/30/20 21:00] folic acid 800 mcg PO QAM 08/31/20 [History Confirmed 08/31/20 Last Taken 08/30/20 08:00] insulin NPH-regular hum s-syn See Rx Instructions .ROUTE .COMPLEX 08/31/20 [History Confirmed 08/31/20 Last Taken 08/30/20 18:00] lisinopril 40 mg PO QDAY 08/31/20 [History Confirmed 08/31/20 Last Taken 08/30/20 08:00] methotrexate 10 mg PO TU 08/31/20 [History Confirmed 08/31/20 Last Taken 08/24/20 08:00] COURSE Hospital Course Hospital course: 55 years old male with type 1 diabetes mellitus admitted with following problem list: # DKA/HHNKs. Due to dehydration and working out side in 110degree heat. - BS 308, CO2 9, anion gap 34, positive ketone -Likely due to dehydration since patient was working outside all day yesterday during the day with temperature over 108 -Admited to ICU. Treated with DKA protocol with IV insulin, aggressive IV fluid and insulin drip - Gap Closed. Off insulin drip as of last night. Blood sugar less than 200. Resume home insulin 70/30 per his own schedule. -BMP stable with normal potassium. Low serum sodium 132. # DM I. Good control per pt. Last A1c 9.6 -Treat as above. #Rheumatoid arthritis with no flare up. -Continue methotrexate and folic acid #Essential hypertension. -Resume home lisinopril #Hyperlipidemia: Resume home statin Disposition: Patient discharged home Condition on discharge: Hemodynamically stable. Tolerated p.o. Discharge activity: As tolerated Discharge diet: Diabetic diet Discharge medication: See med reconciliation form Discharge follow-up: Primary care physician within 1 week for post hospital follow-up Discharge diagnosis: DKA Time Spent with Patient Time attestation: Total time spent providing and/or coordinating discharge services: EXAM Constitutional Vitals: Temp Pulse Resp BP Pulse Ox 97.9 F 87 18 121/73 96 09/01/20 12:01 09/01/20 10:01 09/01/20 12:01 09/01/20 12:01 09/01/20 10:01 Additional findings Additional findings: General: Awake alert oriented x3. Pleasant male, no appa rent distress HEENT: PERRLA, moist mucous membrane. Anicteric sclera Lungs: Clear to auscultation bilaterally. No crackles rhonchi or rales. Cardiovascular: Regular rate and rhythm. S1 + S2, no murmur gallop rub. No peripheral edema. No JVD GI: Abdomen soft, nontender, positive bowel sounds. No hepatosplenomegaly. No rebound tenderness. No CVA tenderness CROSSING TENDER: Awake alert oriented x3. Cranial nerves II through XII 12 grossly intact. Psychiatric: Normal mood and affect Discharge Data Data Completed and Pending Labs on day of discharge: Labs from last 24 hours 09/01/20 09/01/20 09/01/20 11:51 05:30 05:28 WBC 8.1 RBC 3.33 L Hgb 12.0 L Hct 33.9 L MCV 101.8 H MCH 36.0 H MCHC 35.4 RDW 12.1 Plt Count 201 MPV 10.0 Seg Neutrophils % 56 Band Neutrophils % 1 Lymphocytes % 37 Monocytes % (Manual) 5 Reactive Lymphocytes 1 Platelet Estimate Normal RBC Morphology Normal Sodium Pending 131 L Potassium Pending 4.3 Chloride Pending 102 Carbon Dioxide Pending 19 L Anion Gap Pending 10.0 BUN Pending 16 Creatinine Pending 0.7 GFR Calculation Pending 105 Glucose Pending 158 H Hemoglobin A1c Estim Average Glucose Calcium Pending 8.2 L 09/01/20 08/31/20 08/31/20 00:12 19:40 14:12 WBC RBC Hgb Hct MCV MCH MCHC RDW Plt Count MPV Seg Neutrophils % Band Neutrophils % Lymphocytes % Monocytes % (Manual) Reactive Lymphocytes Platelet Estimate RBC Morphology Sodium 130 L 134 TNP Potassium 3.9 4.3 TNP Chloride 105 103 TNP Carbon Dioxide 19 L 18 L TNP Anion Gap 6.0 L 13.0 TNP BUN 18 22 H TNP Creatinine 0.7 0.9 TNP GFR Calculation 105 95 TNP Glucose 153 H 147 H TNP Hemoglobin A1c 8.4 H Estim Average Glucose 194 Calcium 8.2 L 8.0 L TNP Discharge Plan Patient/Caregiver Discharge Instructions Activity: increase activity as tolerated Diet: Consistent Carbohydrate Instructions: Diabetic Ketoacidosis (GEN) Activity Restrictions/Additional Instructions: This discharge packet is provided to you to help keep you informed about your care. We want to ensure you get everything you need when you go home. You will also be receiving a call from us in a few days to follow up with you and see how you are doing since your discharge. This gives us a chance to listen to any concerns you maybe experiencing since you were discharged or any additional needs you may have, as well as providing us feedback on your care experience. We strive to always provide excellent care and thank you for your feedback and for choosing [facility]. Prescriptions: Continued rosuvastatin [Crestor] 40 MG tablet 40 mg PO HS RF: 0 lisinopril 40 mg Tablet 40 mg PO QDAY RF: 0 folic acid 800 mcg Tablet 800 mcg PO QAM RF: 0 methotrexate 2.5 mg/mL Solution 10 mg PO TU RF: 0 insulin NPH-regular hum s-syn 100 unit/mL (70-30) Solution See Rx Instructions .ROUTE .COMPLEX RF: 0 Follow Up Plan Follow up with: Naldo Valdez ARNP [Primary Care Provider] - 09/08/20 (Follow up PCP in 1-2 weeks for post hospital discharge) Patient Disposition: Home, Self-Care Prognosis: Fair Rehab Potential: Good Discharge Orders: Discharge Order (Routine); Ordered 09/01/20 Ordered By: Mars Foster
[2020-09-01 13:31] LABS: Blood Urea Nitrogen 13 mg/dL (6-20); Calcium 9.1 mg/dL (8.6-10.4); Carbon Dioxide 21 mmol/L (22-30); Chloride 105 mmol/L (96-108); Glomerular Filtration Rate 105; Glucose 265 mg/dL (70-105)
== END 2020-09-01 13:27 | disposition home or self-care (01) | DRG 639 ==
LOC: ED 08:13 → ICU 13:21
PROVIDERS: ADMIT Internal Medicine; ATTEND Internal Medicine

== ENCOUNTER 2023-03-22 22:57 | Inpatient (IN) ==
[2023-03-22] MEDS ORDERED: SODIUM BICARBONATE 50 MEQ/50 ML VIAL IV ONE (23:17)
[2023-03-22] MEDS ORDERED: 0.9 % SODIUM CHLORIDE 1,000 ML IV ONE (23:17)
[2023-03-22] MEDS ORDERED: INSULIN REGULAR, HUMAN 1 UNIT/0.01 ML UNIT IV ONE (23:17)
[2023-03-22] MEDS ORDERED: ONDANSETRON 4 MG/2 ML VIAL IV ONE (23:23)
[2023-03-23 00:02] LABS: Basophils # (Auto) 0.01 K/mcL (0.00-0.30); Basophils % (Auto) 0.2 % (0.0-2.0); Eosinophils # (Auto) 0.01 K/mcL (0.00-0.70); Eosinophils % (Auto) 0.2 % (0.0-7.0); Hematocrit 41.5 % (40.1-51.0); Hemoglobin 13.5 g/dL (13.7-17.5); Lymphocytes # (Auto) 1.38 K/mcL (1.50-4.80); Lymphocytes % (Auto) 21.9 % (15.5-49.0); Mean Cell Volume 109.2 fL (80.0-100.0); Mean Corpuscular HGB Conc 32.5 g/dL (31.0-36.0); Mean Platelet Volume 9.6 fL (8.8-12.5); Monocytes % (Auto) 11.1 % (1.0-12.0); Neutrophils % (Auto) 65.3 % (38.0-78.0); Platelet Count 369 K/mcL (140-440); Red Cell Distribution Width 12.2 % (11.5-14.5); WBC 6.3 K/mcL (4.5-11.0)
[2023-03-23] MEDS: DEXTROSE 5%-NS 1,000 ML IV SCH ×5 (00:18→19:14)
[2023-03-23 00:31] LABS: ALT/SGPT 13 U/L (<40); AST/SGOT 19 U/L (<40); Albumin 3.9 gm/dL (3.2-5.2); Albumin/Globulin Ratio 1.1 (1.0-2.3); Alkaline Phosphatase 105 U/L (39-117); Bilirubin,Total < 0.2 mg/dL (0.1-1.0); Blood Urea Nitrogen 28 mg/dL (6-20); Calcium 10.7 mg/dL (8.6-10.4); Carbon Dioxide 5 mmol/L (22-30); Chloride 88 mmol/L (96-108); Globulin 3.5 gm/dL (2.2-3.7); Glomerular Filtration Rate 46; Glucose 357 mg/dL (70-105)
[2023-03-23 00:54] LABS: Appearance,Urine Clear (Clear); Bilirubin,Urine Negative (Negative); Color,Urine Yellow; Culture Indicated,Urine No; Glucose,Urine (UA) 500 mg/dL (Negative); Ketones,Urine >=160 mg/dL (Negative); Leukocyte Esterase,Urine Negative /uL (Negative); Mucus,Urine Few /hpf; Nitrate,Urine Negative (Negative); PH,Urine 5.5 (5.0-9.0); Protein,Urine 30 mg/dL (Negative); Specific Gravity,Urine 1.025 (1.000-1.035); Urine Blood Small ery/mcL (Negative); Urine Hyaline Cast 10 /lph (0-2); Urine RBC < 1 /hpf (0-3); Urine Squamous Epithelial Cell 0 /hpf (0-4); Urine WBC 2 /hpf (0-4); Urobilinogen,Urine Normal
[2023-03-23 01:13] LABS: Beta Hydroxybutyrate 14.55 mmol/L (<0.27)
[2023-03-23 01:33] LABS: POC Calcium, Ionized 1.31 (1.16-1.32); POC Creatinine 1.2 (0.6-1.2); POC Potassium 4.9 (3.3-5.1)
[2023-03-23] MEDS: INSULIN REGULAR, HUMAN 50 UNIT in 0.9 % SODIUM CHLORIDE 99.5 ML IV SCH ×2 (02:55→10:05)
[2023-03-23] MEDS ORDERED: MAG HYDROX/AL HYDROX/SIMETH 30 ML ORAL.SUSP PO ONE (02:55)
[2023-03-23] MEDS ORDERED: FAMOTIDINE/PF 20 MG/2 ML VIAL IV ONE (02:55)
[2023-03-23] MEDS ORDERED: ONDANSETRON 4 MG/2 ML VIAL IV PRN (03:07)
[2023-03-23] MEDS ORDERED: MAG HYDROX/AL HYDROX/SIMETH 30 ML ORAL.SUSP PO PRN (03:07)
[2023-03-23] MEDS ORDERED: 0.9 % SODIUM CHLORIDE 1,000 ML IV SCH (04:15)
[2023-03-23] MEDS: 0.9 % SODIUM CHLORIDE 250 ML IV SCH ×2 (04:18→18:21)
[2023-03-23] MEDS: 0.9 % SODIUM CHLORIDE 10 ML SYRINGE IV SCH ×3 (06:03→20:10)
[2023-03-23] MEDS ORDERED: MAGNESIUM SULFATE 2 GM/50 ML BAG IV PRN (08:22)
[2023-03-23] MEDS ORDERED: SENNOSIDES 1 TABLET PO PRN (08:22)
[2023-03-23] MEDS ORDERED: POTASSIUM CHLORIDE 40 MEQ in DEXTROSE 5% IN WATER 500 ML IV PRN (08:22)
[2023-03-23] MEDS: NICOTINE 21 MG PATCH TOPICAL SCH ×2 (08:22→10:28)
[2023-03-23] MEDS ORDERED: POTASSIUM CHLORIDE 20 MEQ TABLET PO PRN ×2 (08:22)
[2023-03-23] MEDS ORDERED: POLYETHYLENE GLYCOL 3350 17 GM PACKET PO PRN (08:22)
[2023-03-23] MEDS ORDERED: IPRATROPIUM/ALBUTEROL 3 ML AMPUL.NEB NEB PRN (08:23)
[2023-03-23] MEDS ORDERED: ACETAMINOPHEN 325 MG TABLET PO PRN (08:23)
[2023-03-23 08:55] LABS: ALT/SGPT 9 U/L (<40); AST/SGOT 17 U/L (<40); Albumin 3.5 gm/dL (3.2-5.2); Albumin/Globulin Ratio 1.2 (1.0-2.3); Alkaline Phosphatase 89 U/L (39-117); Bilirubin,Direct < 0.2 mg/dL (0-0.3); Bilirubin,Total < 0.2 mg/dL (0.1-1.0); Blood Urea Nitrogen 22 mg/dL (6-20); Calcium 9.4 mg/dL (8.6-10.4); Carbon Dioxide 10 mmol/L (22-30); Chloride 101 mmol/L (96-108); Glomerular Filtration Rate 60; Glucose 240 mg/dL (70-105); Lactate Dehydrogenase 121 U/L (135-225); Phosphorous 1.8 mg/dL (2.5-4.5); Triglycerides 168 mg/dL (<150); Uric Acid 6.8 mg/dL (2.5-8.0)
[2023-03-23] MEDS: NEUTRA PHOS 1 PACKET PO SCH ×2 (09:29→20:10)
[2023-03-23] MEDS: ENOXAPARIN 40 MG/0.4 ML SYRINGE SQ SCH (09:29)
[2023-03-23] MEDS ORDERED: CALCIUM CARBONATE 500 MG TAB.CHEW CHEWED PRN (10:35)
[2023-03-23 18:29] LABS: Phosphorous 1.5 mg/dL (2.5-4.5)
[2023-03-23 18:30] LABS: Blood Urea Nitrogen 21 mg/dL (6-20); Calcium 8.7 mg/dL (8.6-10.4); Carbon Dioxide 22 mmol/L (22-30); Chloride 108 mmol/L (96-108); Glomerular Filtration Rate 82; Glucose 88 mg/dL (70-105)
[2023-03-23] MEDS ORDERED: INSULIN GLARGINE, HUMAN 1 UNIT/0.01 ML SQ ONE (19:31)
[2023-03-23] MEDS: PHOSPHORUS 250 MG TABLET PO SCH (20:21)
[2023-03-23] MEDS: INSULIN LISPRO 1 UNIT/0.01 ML UNIT SQ SCH (21:05)
[2023-03-24] MEDS: 0.9 % SODIUM CHLORIDE 10 ML SYRINGE IV SCH (04:04)
[2023-03-24 06:20] LABS: ALT/SGPT 6 U/L (<40); AST/SGOT 15 U/L (<40); Albumin/Globulin Ratio 1.3 (1.0-2.3); Alkaline Phosphatase 74 U/L (39-117); Bilirubin,Direct < 0.2 mg/dL (0-0.3); Bilirubin,Total < 0.2 mg/dL (0.1-1.0); Blood Urea Nitrogen 13 mg/dL (6-20); Calcium 8.5 mg/dL (8.6-10.4); Carbon Dioxide 20 mmol/L (22-30); Chloride 105 mmol/L (96-108); Globulin 2.4 gm/dL (2.2-3.7); Glomerular Filtration Rate 103; Glucose 119 mg/dL (70-105); Lactate Dehydrogenase 111 U/L (135-225); Phosphorous 1.8 mg/dL (2.5-4.5); Triglycerides 100 mg/dL (<150); Uric Acid 4.2 mg/dL (2.5-8.0)
[2023-03-24] MEDS: 0.9 % SODIUM CHLORIDE 250 ML IV SCH (06:47)
[2023-03-24 07:03] LABS: Beta Hydroxybutyrate 0.01 mmol/L (<0.27)
[2023-03-24] MEDS: INSULIN LISPRO 1 UNIT/0.01 ML UNIT SQ SCH (07:21)
[2023-03-24] MEDS: NEUTRA PHOS 1 PACKET PO SCH (09:21)
[2023-03-24] MEDS: ENOXAPARIN 40 MG/0.4 ML SYRINGE SQ SCH ×2 (09:21→09:23)
[2023-03-24] MEDS: PHOSPHORUS 250 MG TABLET PO SCH (09:21)
== END 2023-03-24 09:45 | disposition left against medical advice (07) | DRG 638 ==
LOC: ED 22:57 → ICU 03-23 03:54
PROVIDERS: ADMIT Internal Medicine; ATTEND Internal Medicine

== ENCOUNTER 2024-02-09 10:29 | Inpatient (IN) ==
[2024-02-09] MEDS: 0.9 % SODIUM CHLORIDE 1,000 ML IV ONE ×2 (11:07→13:15)
[2024-02-09] MEDS: ONDANSETRON 4 MG/2 ML VIAL IV ONE (11:07)
[2024-02-09 11:14] LABS: Basophils # (Auto) 0.02 K/mcL (0.00-0.30); Basophils % (Auto) 0.2 % (0.0-2.0); Eosinophils # (Auto) 0.01 K/mcL (0.00-0.70); Eosinophils % (Auto) 0.1 % (0.0-7.0); Hematocrit 42.5 % (40.1-51.0); Hemoglobin 14.3 g/dL (13.7-17.5); Lymphocytes # (Auto) 1.37 K/mcL (1.50-4.80); Mean Cell Volume 106.5 fL (80.0-100.0); Mean Corpuscular HGB Conc 33.6 g/dL (31.0-36.0); Mean Platelet Volume 9.8 fL (8.8-12.5); Monocytes # (Auto) 0.76 K/mcL (0.10-0.90); Monocytes % (Auto) 7.7 % (1.0-12.0); Neutrophils % (Auto) 77.8 % (38.0-78.0); Platelet Count 320 K/mcL (140-440); RBC 3.99 M/mcL (4.63-6.08); Red Cell Distribution Width 12.2 % (11.5-14.5); WBC 9.8 K/mcL (4.5-11.0)
[2024-02-09] MEDS: FAMOTIDINE/PF 20 MG/2 ML VIAL IV ONE ×2 (11:20→11:25)
[2024-02-09 11:41] LABS: ALT/SGPT 45 U/L (<40); AST/SGOT 31 U/L (<40); Albumin 4.8 gm/dL (3.2-5.2); Alkaline Phosphatase 102 U/L (39-117); Bilirubin,Total 0.5 mg/dL (0.1-1.0); Blood Urea Nitrogen 31 mg/dL (6-20); Calcium 10.3 mg/dL (8.6-10.4); Carbon Dioxide 9 mmol/L (22-30); Chloride 86 mmol/L (96-108); Globulin 2.4 gm/dL (2.2-3.7); Glomerular Filtration Rate 50; Glucose 302 mg/dL (70-105); Sodium 137 mmol/L (133-145)
[2024-02-09] MEDS: MAG HYDROX/AL HYDROX/SIMETH 30 ML ORAL.SUSP PO ONE (11:55)
[2024-02-09] MEDS ORDERED: INSULIN REGULAR, HUMAN 50 UNIT in 0.9 % SODIUM CHLORIDE 99.5 ML IV SCH ×2 (12:00→12:15)
[2024-02-09 12:42] LABS: Phosphorous 6.9 mg/dL (2.5-4.5)
[2024-02-09] MEDS ORDERED: ONDANSETRON 4 MG/2 ML VIAL IV PRN (13:45)
[2024-02-09] MEDS ORDERED: IPRATROPIUM/ALBUTEROL 3 ML AMPUL.NEB NEB PRN (13:45)
[2024-02-09] MEDS ORDERED: hydrALAZINE 20 MG/ML VIAL IV PRN (13:45)
[2024-02-09] MEDS ORDERED: ACETAMINOPHEN 160 MG/5 ML ORAL.SOL PO PRN (13:45)
[2024-02-09] MEDS ORDERED: SENNOSIDES 1 TABLET PO PRN (13:45)
[2024-02-09] MEDS ORDERED: MAGNESIUM SULFATE 2 GM/50 ML BAG IV PRN (13:45)
[2024-02-09] MEDS ORDERED: METOCLOPRAMIDE 10 MG/2 ML VIAL IV PRN (13:45)
[2024-02-09] MEDS ORDERED: POLYETHYLENE GLYCOL 3350 17 GM PACKET PO PRN (13:45)
[2024-02-09] MEDS ORDERED: POTASSIUM CHLORIDE 20 MEQ TABLET PO PRN ×2 (13:45)
[2024-02-09] MEDS ORDERED: BISMUTH SUBSALICYLATE 15 ML ORAL.SUSP PO PRN (13:45)
[2024-02-09] MEDS ORDERED: POTASSIUM CHLORIDE 40 MEQ in DEXTROSE 5% IN WATER 500 ML IV PRN (13:45)
[2024-02-09] MEDS: 0.9 % SODIUM CHLORIDE 1,000 ML IV SCH (14:10)
[2024-02-09] MEDS: DEXTROSE 5%-NS 1,000 ML IV SCH (14:10)
[2024-02-09] MEDS: NICOTINE 21 MG PATCH TOPICAL ONE (14:30)
[2024-02-09] MEDS: INSULIN REGULAR, HUMAN 50 UNIT in 0.9 % SODIUM CHLORIDE 99.5 ML IV SCH (15:00)
[2024-02-09 16:03] LABS: Appearance,Urine Clear (Clear); Bacteria,Urine 0 /hpf (0); Bilirubin,Urine Negative (Negative); Color,Urine Yellow; Glucose,Urine (UA) 500 mg/dL (Negative); Ketones,Urine >=160 mg/dL (Negative); Leukocyte Esterase,Urine Negative /uL (Negative); Nitrate,Urine Negative (Negative); PH,Urine 5.5 (5.0-9.0); Protein,Urine 30 mg/dL (Negative); Specific Gravity,Urine 1.025 (1.000-1.035); Urine Blood Trace-lysed ery/mcL (Negative); Urine RBC 0 /hpf (0-3); Urine Squamous Epithelial Cell 0 /hpf (0-4); Urine WBC 0 /hpf (0-4); Urobilinogen,Urine Normal
[2024-02-09 18:46] LABS: Blood Urea Nitrogen 28 mg/dL (6-20); Calcium 8.8 mg/dL (8.6-10.4); Carbon Dioxide 18 mmol/L (22-30); Chloride 96 mmol/L (96-108); Glomerular Filtration Rate 65; Glucose 263 mg/dL (70-105); Potassium 3.9 mmol/L (3.3-5.1); Sodium 133 mmol/L (133-145)
[2024-02-09] MEDS: DOCUSATE SODIUM 100 MG CAPSULE PO SCH (20:14)
[2024-02-09] MEDS: ATORVASTATIN 40 MG TABLET PO SCH (20:14)
[2024-02-10 06:33] LABS: ALT/SGPT 25 U/L (<40); AST/SGOT 21 U/L (<40); Albumin 3.6 gm/dL (3.2-5.2); Albumin/Globulin Ratio 1.9 (1.0-2.3); Alkaline Phosphatase 70 U/L (39-117); Bilirubin,Direct 0.3 mg/dL (<0.3); Bilirubin,Total 0.6 mg/dL (0.1-1.0); Blood Urea Nitrogen 19 mg/dL (6-20); Calcium 8.7 mg/dL (8.6-10.4); Carbon Dioxide 21 mmol/L (22-30); Chloride 100 mmol/L (96-108); Globulin 1.9 gm/dL (2.2-3.7); Glomerular Filtration Rate 97; Glucose 204 mg/dL (70-105); Lactate Dehydrogenase 129 U/L (135-225); Phosphorous 2.1 mg/dL (2.5-4.5); Potassium 3.9 mmol/L (3.3-5.1); Sodium 137 mmol/L (133-145); Triglycerides 96 mg/dL (<150); Uric Acid 5.1 mg/dL (2.5-8.0)
[2024-02-10 07:15] LABS: Beta Hydroxybutyrate 3.18 mmol/L (<0.27)
[2024-02-10] MEDS ORDERED: [UNRECOGNIZED DRUG - OTHER] SCH (07:45)
[2024-02-10] MEDS: DEXTROSE 5%-1/2NS W/10MEQ KCL 1,000 ML IV SCH (08:01)
[2024-02-10] MEDS ORDERED: ENOXAPARIN 40 MG/0.4 ML SYRINGE SQ SCH (09:00)
[2024-02-10] MEDS ORDERED: INSULIN, 75/25 NPL/LISPRO 1 UNIT/0.01 ML UNIT SQ SCH (09:00)
[2024-02-10] MEDS ORDERED: FOLIC ACID 1 MG TABLET PO SCH (09:00)
[2024-02-10] MEDS ORDERED: NICOTINE 21 MG PATCH TOPICAL SCH (10:00)
== END 2024-02-10 08:55 | disposition left against medical advice (07) | DRG 638 ==
LOC: ED 10:29 → ICU 13:34
PROVIDERS: ADMIT Internal Medicine; ATTEND Internal Medicine